=== PATIENT | female | born 1995 | race Hispanic/Latino ===

== ENCOUNTER 2016-12-31 13:03 | Emergency (ER) | payer SELFPAY ==
[2016-12-31 13:38] VITALS: BP 148/88
[2016-12-31 14:47] LABS: Alanine Aminotransferase 10 units/L (7-56); Albumin 4.6 g/dL (3.9-5); Albumin/Globulin Ratio 1.8 %; Alkaline Phosphatase 84 units/L (35-129); Anion Gap 18 mmol/L; BUN/Creatinine Ratio 8.88; Bilirubin,Total 0.2 mg/dL (0.1-1.2); Blood Urea Nitrogen 8 mg/dL (7-17); Calcium 9.3 mg/dL (8.4-10.2); Carbon Dioxide 26 mmol/L (22-30); Chloride 100.8 mmol/L (98-107); Glucose 98 mg/dL (65-100); Lipase 42 units/L (13-60); Potassium 4.3 mmol/L (3.6-5.0); Sodium 140 mmol/L (137-145); Total Protein 7.2 g/dL (6.3-8.2)
[2016-12-31 15:07] LABS: Basophils % (Auto) 0.5 % (0.0-1.8); Eosinophils % (Auto) 2.9 % (0.0-4.3); Hemoglobin 14.6 gm/dl (10.1-14.3); Mean Corpuscular HGB Conc 33 % (30-34); Mean Corpuscular Hemoglobin 29 pg (28-32); Mean Corpuscular Volume 88 fl (79-97); Platelet Count 265 K/mm3 (140-440); Red Blood Count 5.02 M/mm3 (3.65-5.03); Red Cell Distribution Width 13.3 % (13.2-15.2); White Blood Count 8.1 K/mm3 (4.5-11.0)
[2016-12-31 15:12] LABS: Bilirubin,Urine NEG (Negative); Blood,Urine NEG (Negative); Ketones,Urine NEG (Negative); Leukocyte Esterase,Urine TR (Negative); Mucus,Urine FEW /HPF; Nitrite,Urine NEG (Negative); Protein,Urine <15 mg/dL mg/dL (Negative); Urobilinogen,Urine < 2.0 mg/dL (<2.0)
--- NOTE | 2017-01-01 14:29 | ED Elopement Review ---
ED Pt Elopement review - Results review Lab results: Laboratory Tests 12/31/16 12/31/16 12/31/16 13:50 13:50 13:50 WBC 8.1 RBC 5.02 Hgb 14.6 H Hct 44.0 H MCV 88 MCH 29 MCHC 33 RDW 13.3 Plt Count 265 Lymph % (Auto) 30.1 [place] % (Auto) 9.5 H Eos % (Auto) 2.9 Baso % (Auto) 0.5 Lymph # 2.4 [place] # 0.8 Eos # 0.2 Baso # 0.0 Seg Neutrophils % 57.0 Seg Neutrophils # 4.6 Sodium 140 Potassium 4.3 Chloride 100.8 Carbon Dioxide 26 Anion Gap 18 BUN 8 Creatinine 0.9 Estimated GFR > 60 BUN/Creatinine Ratio 8.88 Glucose 98 Calcium 9.3 Total Bilirubin 0.2 AST 15 ALT 10 Alkaline Phosphatase 84 Total Protein 7.2 Albumin 4.6 Albumin/Globulin Ratio 1.8 Lipase 42 HCG, Qual Negative Urine Color Urine Turbidity Urine pH Ur Specific [place] Urine Protein Urine Glucose (UA) Urine Ketones Urine Blood Urine Nitrite Urine Bilirubin Urine Urobilinogen Ur Leukocyte Esterase Urine WBC (Auto) Urine RBC (Auto) U Epithel Cells (Auto) Urine Mucus 12/31/16 14:25 WBC RBC Hgb Hct MCV MCH MCHC RDW Plt Count Lymph % (Auto) [place] % (Auto) Eos % (Auto) Baso % (Auto) Lymph # [place] # Eos # Baso # Seg Neutrophils % Seg Neutrophils # Sodium Potassium Chloride Carbon Dioxide Anion Gap BUN Creatinine Estimated GFR BUN/Creatinine Ratio Glucose Calcium Total Bilirubin AST ALT Alkaline Phosphatase Total Protein Albumin Albumin/Globulin Ratio Lipase HCG, Qual Urine Color Yellow Urine Turbidity Clear Urine pH 6.0 Ur Specific [place] 1.024 Urine Protein <15 mg/dl Urine Glucose (UA) Neg Urine Ketones Neg Urine Blood Neg Urine Nitrite Neg Urine Bilirubin Neg Urine Urobilinogen < 2.0 Ur Leukocyte Esterase Tr Urine WBC (Auto) 1.0 Urine RBC (Auto) 5.0 U Epithel Cells (Auto) 9.0 Urine Mucus Few - Call Back decision Pt Call Back Decision: Pt to F/U with PMD
== END 2017-01-01 04:58 | disposition left against medical advice (07) ==
LOC: ED 13:03
DX: R51 Headache (principal); R10.30 Lower abdominal pain, unspecified; Z53.21 Procedure and treatment not carried out due to patient leaving prior to being seen by health care provider
CPT/HCPCS: 36415; 80053; 81001; 83690; 84703; 85025

== ENCOUNTER 2017-03-05 15:02 | Emergency (ER) | payer SELFPAY ==
[2017-03-05 15:09] VITALS: BP 120/77
--- NOTE | 2017-03-05 16:44 | Emergency Department Report ---
HPI - General Chief Complaint: Urogenital-Female Time Seen by Provider: 03/05/17 16:35 - HPI HPI: This is a 21-year-old female who presents to the emergency department with complaint of some swelling and mild discomfort to the right side of the upper labia as well as some pain just above the vagina. This been going on for the past few days. She denies any fever, nausea, vomiting. She is not taken anything for symptoms prior to presentation. She has a past nuchal history of asthma, GERD, anxiety with panic attacks. She is sexually active and does not always use protection. She has a past history of gonorrhea. She denies any vaginal bleeding, vaginal discharge, dysuria. She does not have a primary care physician or DIAL MARKER. There are no known aggravating or alleviating factors other than touching the areas makes it more painful. ED Past Medical Hx - Past Medical History Previous Medical History?: Yes Hx GERD: Yes Hx Seizures: Yes Hx Psychiatric Treatment: Yes (PANIC ATTACKS) Hx Asthma: Yes Additional medical history: hx panic attacks, reflux - Surgical History Past Surgical History?: No - Social History Smoking Status: Never Smoker Substance Use Type: Non Opiate Pain, Prescribed - Medications Home Medications: Home Medications Medication Instructions Recorded Confirmed Last Taken Type levETIRAcetam [Keppra TAB] 1,000 mg PO BID #30 tablet 06/20/15 12/31/16 09:00 Rx Sulfamethoxazole/Trimethoprim 1 each PO ONCE #14 tablet 03/05/17 Unknown Rx [Bactrim DS TAB] ED Review of Systems ROS: Stated complaint: POSS STD Other details as noted in HPI Comment: All other systems reviewed and negative Constitutional: denies: chills, fever Eyes: denies: eye pain, eye discharge, vision change ENT: denies: ear pain, throat pain Respiratory: denies: cough, shortness of breath, wheezing Cardiovascular: denies: chest pain, palpitations Gastrointestinal: denies: abdominal pain, nausea, diarrhea Genitourinary: denies: urgency, dysuria, discharge Musculoskeletal: denies: back pain, joint swelling, arthralgia Skin: lesions Neurological: denies: headache, weakness, paresthesias Physical Exam - Physical Exam Vital Signs: Vital Signs 03/05/17 15:06 Temperature 98.1 F Pulse Rate 85 Respiratory 18 Rate Blood Pressure 120/77 O2 Sat by Pulse 99 Oximetry Physical Exam: GENERAL: The patient is well-developed well-nourished. HEENT: Normocephalic. Atraumatic. Extraocular motions are intact. Patient has moist mucous membranes. NECK: Supple. Trachea is midline. CHEST/LUNGS: Clear to auscultation. There is no respiratory distress noted. HEART/CARDIOVASCULAR: Regular. There is no tachycardia. There is no gallop rub or murmur. ABDOMEN: Abdomen is soft, nontender. Patient has normal bowel sounds. There is no abdominal distention. SKIN: Skin is warm and dry. : There is a area of swelling to the superior right labia, almost at the mons , that is about 2 cm x 0.5 cm. It is tender and either soft or slightly fluctuant but there is no warmth, erythema. The patient also has some tenderness palpation to the mons just left of center. There is no palpable or visible hernias. There are no other lesions seen on the labia or vagina. NEURO: The patient is awake, alert, and oriented. The patient is cooperative. The patient has no focal neurologic deficits. The patient has normal speech. MUSCULOSKELETAL: There is no tenderness or deformity. There is no limitation range of motion. There is no evidence of acute injury. ED Course Vital Signs 03/05/17 15:06 Temperature 98.1 F Pulse Rate 85 Respiratory 18 Rate Blood Pressure 120/77 O2 Sat by Pulse 99 Oximetry ED Medical Decision Making - Medical Decision Making 21-year-old female presents the emergency department with complaint of some swelling to a small area in the upper right labia as well as some discomfort just above the vagina and what she describes as a "bruising sensation." There was a 2 x 1 cm swollen area to the upper right labia but it was not obviously an abscess and did not appear necessarily ready for any type of I&D. I also took an ultrasound and held it to both the area and the upper labia and the area that is painful above the vagina and there was no double fluid collection seen at that time. When I went back to reevaluate the patient's he says that there was the beginning of some purulent discharge from the small area on the labia. Urinalysis did not show any urinary tract infection and the patient isn' t . Vital signs stable throughout her ED course including being afebrile. Patient started on Bactrim and will use warm compresses. She will return to the ER for any worsening of her symptoms or any acute distress. She was given both primary care and DIAL MARKER referrals. - Differential Diagnosis abscess, boil, dermatitis Critical Care Time: No Critical care attestation.: If time is entered above; I have spent that time in minutes in the direct care of this critically ill patient, excluding procedure time. ED Disposition Clinical Impression: Abscess of labia Groin pain Qualifiers: Laterality: unspecified laterality Qualified Code(s): R10.30 - Lower abdominal pain, unspecified Disposition: TO HOME OR SELFCARE Is pt being admited?: No Condition: Stable Instructions: Abscess (ED) Additional Instructions: Use a warm compress against the labial swelling a few times a day to see if it will form a head and open up. Return to the emergency department with any worsening of your symptoms or any acute distress. Take the antibiotics as prescribed. I'm giving a referral for primary care and DIAL MARKER. Prescriptions: Sulfamethoxazole/Trimethoprim [Bactrim DS TAB] 1 each PO ONCE #14 tablet Referrals: PRIMARY MD DEANNA [Primary Care Provider] - 3-5 Days SHANE DESIR MD [Staff Physician] - 3-5 Days [facility] [Outside] - 3-5 Days [facility] [Provider Group] - 3-5 Days [facility] [Provider Group] - 3-5 Days Time of Disposition: 18:08
[2017-03-05 17:58] LABS: Bacteria,Urine 3+ /HPF (Negative); Bilirubin,Urine NEG (Negative); Blood,Urine NEG (Negative); Ketones,Urine NEG (Negative); Leukocyte Esterase,Urine NEG (Negative); Mucus,Urine FEW /HPF; Nitrite,Urine NEG (Negative); Protein,Urine <15 mg/dL mg/dL (Negative); Urobilinogen,Urine < 2.0 mg/dL (<2.0)
[2017-03-05] MEDS ORDERED: BACTRIM DS PO ONE (18:03)
== END 2017-03-05 18:19 | disposition home or self-care (01) ==
LOC: ED 15:02
DX: N76.4 Abscess of vulva (principal); K21.9 Gastro-esophageal reflux disease without esophagitis; J45.909 Unspecified asthma, uncomplicated
CPT/HCPCS: 81001; 81025; 99283

== ENCOUNTER 2017-03-08 21:37 | Emergency (ER) | payer SELFPAY ==
[2017-03-08 23:55] LABS: Basophils % (Auto) 0.3 % (0.0-1.8); Eosinophils % (Auto) 2.1 % (0.0-4.3); Hematocrit 39.4 % (30.3-42.9); Hemoglobin 13.7 gm/dl (10.1-14.3); Mean Corpuscular HGB Conc 35 % (30-34); Mean Corpuscular Hemoglobin 30 pg (28-32); Mean Corpuscular Volume 87 fl (79-97); Platelet Count 236 K/mm3 (140-440); Red Blood Count 4.55 M/mm3 (3.65-5.03); Red Cell Distribution Width 12.8 % (13.2-15.2); White Blood Count 12.9 K/mm3 (4.5-11.0)
[2017-03-09 00:02] LABS: Anion Gap 16 mmol/L; BUN/Creatinine Ratio 13.63; Blood Urea Nitrogen 15 mg/dL (7-17); Calcium 9.5 mg/dL (8.4-10.2); Carbon Dioxide 25 mmol/L (22-30); Chloride 102.9 mmol/L (98-107); Glucose 85 mg/dL (65-100); Potassium 4.2 mmol/L (3.6-5.0); Sodium 140 mmol/L (137-145)
[2017-03-09] MEDS ORDERED: MOTRIN PO ONE (02:23)
--- NOTE | 2017-03-09 02:39 | Emergency Department Report ---
ED Female HPI - General Chief complaint: Urogenital-Female Stated complaint: VAG PAIN/ W BRUSING Time Seen by Provider: 03/09/17 02:14 Source: patient Mode of arrival: Ambulatory Limitations: No Limitations - History of Present Illness Initial comments: 21-year-old female past medical history anxiety, panic attacks presents with complaint of right labial abscess. Patient states that for the last 3-4 days she has noticed right vaginal pain and swelling. Patient presented to the ED several days ago was prescribed antibiotics and discharged. Patient now presents with right labial pain and swelling MD Complaint: other (labial pain right) Onset/Timin -: days(s) Location: labia (right) Severity: mild Severity scale (0 -10): 6 Quality: aching Consistency: constant Are you Now?: No - Related Data Previous Rx's Medication Instructions Recorded Last Taken Type levETIRAcetam [Keppra TAB] 1,000 mg PO BID #30 tablet 06/20/15 12/31/16 09:00 Rx Sulfamethoxazole/Trimethoprim 1 each PO ONCE #14 tablet 03/05/17 Unknown Rx [Bactrim DS TAB] Acetaminophen/Codeine [Tylenol 1 tab PO Q6H PRN #12 tab 03/09/17 Unknown Rx /Codeine # 3 tab] Cephalexin [Keflex] 500 mg PO Q12HR #14 cap 03/09/17 Unknown Rx Fluconazole [Diflucan TAB] 150 mg PO ONCE #1 tablet 03/09/17 Unknown Rx Ibuprofen [Motrin] 600 mg PO Q8H PRN #30 tablet 03/09/17 Unknown Rx Ondansetron [Zofran Odt] 4 mg PO Q8HR PRN #12 tab.rapdis 03/09/17 Unknown Rx Allergies Allergy/AdvReac Type Severity Reaction Status Date / Time No Known Allergies Allergy Verified 12/31/16 13:29 ED Review of Systems ROS: Stated complaint: VAG PAIN/ W BRUSING Other details as noted in HPI Constitutional: denies: chills, fever Eyes: denies: eye pain, eye discharge, vision change ENT: denies: ear pain, throat pain Respiratory: denies: cough, shortness of breath, wheezing Cardiovascular: denies: chest pain, palpitations Endocrine: no symptoms reported Gastrointestinal: denies: abdominal pain, nausea, diarrhea Genitourinary: other (right labial pain and swelling). denies: urgency, dysuria , discharge Musculoskeletal: denies: back pain, joint swelling, arthralgia Skin: denies: rash, lesions Neurological: denies: headache, weakness, paresthesias Psychiatric: denies: anxiety, depression Hematological/Lymphatic: denies: easy bleeding, easy bruising ED Past Medical Hx - Past Medical History Previous Medical History?: Yes Hx GERD: Yes Hx Seizures: Yes Hx Psychiatric Treatment: Yes (PANIC ATTACKS) Hx Asthma: Yes Additional medical history: hx panic attacks, reflux - Social History Smoking Status: Never Smoker Substance Use Type: None - Medications Home Medications: Home Medications Medication Instructions Recorded Confirmed Last Taken Type levETIRAcetam [Keppra TAB] 1,000 mg PO BID #30 tablet 06/20/15 12/31/16 09:00 Rx Sulfamethoxazole/Trimethoprim 1 each PO ONCE #14 tablet 03/05/17 Unknown Rx [Bactrim DS TAB] Acetaminophen/Codeine [Tylenol 1 tab PO Q6H PRN #12 tab 03/09/17 Unknown Rx /Codeine # 3 tab] Cephalexin [Keflex] 500 mg PO Q12HR #14 cap 03/09/17 Unknown Rx Fluconazole [Diflucan TAB] 150 mg PO ONCE #1 tablet 03/09/17 Unknown Rx Ibuprofen [Motrin] 600 mg PO Q8H PRN #30 tablet 03/09/17 Unknown Rx Ondansetron [Zofran Odt] 4 mg PO Q8HR PRN #12 tab.rapdis 03/09/17 Unknown Rx ED Physical Exam - General Limitations: No Limitations General appearance: alert, in no apparent distress - Head Head exam: Present: atraumatic, normocephalic - Eye Eye exam: Present: normal appearance, PERRL, EOMI - ENT ENT exam: Present: mucous membranes moist - Neck Neck exam: Present: normal inspection - Respiratory Respiratory exam: Present: normal lung sounds bilaterally. Absent: respiratory distress - Cardiovascular Cardiovascular Exam: Present: regular rate, normal rhythm. Absent: systolic murmur, diastolic murmur, rubs, gallop - GI/Abdominal GI/Abdominal exam: Present: soft, normal bowel sounds - External exam: Present: swelling, other (right labial abscess) Speculum exam: Present: normal speculum exam Bi-manual exam: Present: normal bi-manual exam - Expanded Exam Expanded Female exam: Present: vulvar tenderness (right sided) image: 1 - labial abscess here - Extremities Exam Extremities exam: Present: normal inspection - Back Exam Back exam: Present: normal inspection - Neurological Exam Neurological exam: Present: alert, oriented X3 - Psychiatric Psychiatric exam: Present: normal affect, normal mood - Skin Skin exam: Present: warm, dry, intact, normal color. Absent: rash ED Course Vital Signs 03/08/17 22:30 Temperature 98.7 F Pulse Rate 88 Respiratory 18 Rate Blood Pressure 114/72 O2 Sat by Pulse 97 Oximetry - I & D Right Vagina Type of Procedure: Simple Site: right labia vagina Blade Size: 11 I & D Procedure: betadine prep, gauze wick placed (2 strips of iodoform gauze placed in to wound sites incision sites approxim) Progress: Right labia infiltrated with lidocaine 1%. Good local anesthesia achieved. 2 small vertical incisions made on top and bottom of abscess. Moderate amount of drainage, wound culture sent. Minimal bleeding, procedure tolerated well. I was unable to insert a Wurd catheter or Ko ring but did place iodoform gauze. Patient given sanitary napkin afterward. ED Medical Decision Making - Lab Data Result diagrams: 03/08/17 23:22 03/08/17 23:22 - Medical Decision Making A/P: Right labial abscess 1-abscess incised and drained, wound culture sent, significant reduction of pain and swelling 2-wound packed with iodoform gauze. Patient did not tolerate Edwards catheter or Sergo ring 3-Motrin when necessary, Tylenol No. 3 when necessary 4-follow up in the ED 48 hours for wound check 5- I advised patient to return to the ED for fever chills nausea and vomiting or reaccumulation of abscess 6-HOTEL ASSOCIATE follow-up Critical care attestation.: If time is entered above; I have spent that time in minutes in the direct care of this critically ill patient, excluding procedure time. ED Disposition Clinical Impression: Abscess of vagina Disposition: DC- TO HOME OR SELFCARE Is pt being admited?: No Does the pt Need Aspirin: No Condition: Stable Instructions: Abscess (ED), Abscess Incision and Drainage (ED) Additional Instructions: 48 hour wound check in the ED Prescriptions: Acetaminophen/Codeine [Tylenol /Codeine # 3 tab] 1 tab PO Q6H PRN #12 tab PRN Reason: Pain Cephalexin [Keflex] 500 mg PO Q12HR #14 cap Fluconazole [Diflucan TAB] 150 mg PO ONCE #1 tablet Ibuprofen [Motrin] 600 mg PO Q8H PRN #30 tablet PRN Reason: Pain Ondansetron [Zofran Odt] 4 mg PO Q8HR PRN #12 tab.rapdis PRN Reason: Nausea Referrals: JOHNNY CLARK MD [Staff Physician] - 3-5 Days [facility] [Provider Group] - 3-5 Days Forms: Accompanied Note, Work/School Release Form(ED) Time of Disposition: 03:27
[2017-03-09] MEDS ORDERED: ZOFRAN ODT PO ONE (02:59)
[2017-03-09] MEDS ORDERED: NORCO 5/325 PO ONE (02:59)
[2017-03-09 03:39] VITALS: BP 119/77
== END 2017-03-09 03:40 | disposition home or self-care (01) ==
LOC: ED 21:37
DX: N76.4 Abscess of vulva (principal); K21.9 Gastro-esophageal reflux disease without esophagitis; R56.9 Unspecified convulsions; J45.909 Unspecified asthma, uncomplicated; F41.0 Panic disorder [episodic paroxysmal anxiety]
CPT/HCPCS: 36415; 80048; 85025; 87116; Q0162

== ENCOUNTER 2017-03-10 15:40 | Emergency (ER) | payer SELFPAY ==
[2017-03-10 15:53] VITALS: BP 114/69
--- NOTE | 2017-03-10 16:10 | Emergency Department Report ---
Suture/Staple Removal - [facility] Chief Complaint: Laceration/Recheck/Suture Stated Complaint: FOLLOW UP Time Seen by Provider: 03/10/17 15:51 When Sutures or Gurvinder Placed: 2 days ago Wound Location: R labia ED Review of Systems ROS: Stated complaint: FOLLOW UP Other details as noted in HPI Constitutional: denies: chills, fever Gastrointestinal: denies: abdominal pain, nausea, vomiting Genitourinary: other (decrease in swelling ). denies: discharge Skin: other (pt states the packing fell out yesterday ) ED Past Medical Hx - Past Medical History Previous Medical History?: Yes Hx GERD: Yes Hx Seizures: Yes Hx Psychiatric Treatment: Yes (PANIC ATTACKS) Hx Asthma: Yes Additional medical history: hx panic attacks, reflux - Surgical History Past Surgical History?: No - Social History Smoking Status: Never Smoker Substance Use Type: None - Medications Home Medications: Home Medications Medication Instructions Recorded Confirmed Last Taken Type levETIRAcetam [Keppra TAB] 1,000 mg PO BID #30 tablet 06/20/15 12/31/16 09:00 Rx Sulfamethoxazole/Trimethoprim 1 each PO ONCE #14 tablet 03/05/17 Unknown Rx [Bactrim DS TAB] Acetaminophen/Codeine [Tylenol 1 tab PO Q6H PRN #12 tab 03/09/17 Unknown Rx /Codeine # 3 tab] Cephalexin [Keflex] 500 mg PO Q12HR #14 cap 03/09/17 Unknown Rx Fluconazole [Diflucan TAB] 150 mg PO ONCE #1 tablet 03/09/17 Unknown Rx Ibuprofen [Motrin] 600 mg PO Q8H PRN #30 tablet 03/09/17 Unknown Rx Ondansetron [Zofran Odt] 4 mg PO Q8HR PRN #12 tab.rapdis 03/09/17 Unknown Rx Suture Removal Exam - Exam General: Vital signs noted. No distress. Alert and acting appropriately. R labia with I and D site. small amount of drainage Wound: Yes Tenderness, Yes Drainage (small amount ), Yes Pus, No Pathologic Erythema Other Systems: All other systems reviewed and are unremarkable. ED Course Vital Signs 03/10/17 15:50 Temperature 98.3 F Pulse Rate 77 Respiratory 16 Rate Blood Pressure 114/69 O2 Sat by Pulse 100 Oximetry - Reevaluation(s) Reevaluation #1: 03/10/17 16:09 PT states pain improved. PT aware culture pending. pt aware she will need to follow up with map drafter and she will need to continue taking her antibiotics. - Pulse Oximetry Interpretation Digit-Finger Initial Pulse Oximetry Readin Actions Taken: none ED Recheck MDM - Differential Diagnosis Wound Recheck, Cellultitis Recheck, Cutananeous Abscess reche Critical Care Time: No Critical care attestation.: If time is entered above; I have spent that time in minutes in the direct care of this critically ill patient, excluding procedure time. ED Disposition Clinical Impression: Abscess of labia Disposition: - TO HOME OR SELFCARE Is pt being admited?: No Does the pt Need Aspirin: No Condition: Stable Instructions: Abscess (ED) Referrals: FABIOLA MENG MD [Staff Physician] - 3-5 Days [facility] [Outside] - 3-5 Days [facility] [Outside] - 3-5 Days Time of Disposition: 16:11
== END 2017-03-10 16:36 | disposition home or self-care (01) ==
LOC: ED 15:40
DX: Z48.00 Encounter for change or removal of nonsurgical wound dressing (principal); K21.9 Gastro-esophageal reflux disease without esophagitis; J45.909 Unspecified asthma, uncomplicated

== ENCOUNTER 2017-03-31 08:27 | Emergency (ER) | payer SELFPAY ==
[2017-03-31 08:39] VITALS: BP 120/81
[2017-03-31 09:18] LABS: Basophils % (Auto) 0.7 % (0.0-1.8); Eosinophils % (Auto) 2.6 % (0.0-4.3); Hematocrit 41.5 % (30.3-42.9); Mean Corpuscular HGB Conc 34 % (30-34); Mean Corpuscular Hemoglobin 29 pg (28-32); Mean Corpuscular Volume 87 fl (79-97); Platelet Count 258 K/mm3 (140-440); Red Blood Count 4.78 M/mm3 (3.65-5.03); Red Cell Distribution Width 12.8 % (13.2-15.2); White Blood Count 7.5 K/mm3 (4.5-11.0)
[2017-03-31 09:32] LABS: Anion Gap 19 mmol/L; BUN/Creatinine Ratio 11.11; Blood Urea Nitrogen 10 mg/dL (7-17); Calcium 9.2 mg/dL (8.4-10.2); Carbon Dioxide 22 mmol/L (22-30); Chloride 104.4 mmol/L (98-107); Glucose 100 mg/dL (65-100); Potassium 4.6 mmol/L (3.6-5.0); Sodium 141 mmol/L (137-145)
== END 2017-03-31 09:12 | disposition left against medical advice (07) ==
LOC: ED 08:27
DX: F41.0 Panic disorder [episodic paroxysmal anxiety] (principal); Z53.21 Procedure and treatment not carried out due to patient leaving prior to being seen by health care provider
CPT/HCPCS: 36415; 80048; 80177; 85025

== ENCOUNTER 2017-07-16 12:59 | Emergency (ER) | payer SELFPAY ==
[2017-07-16 13:48] VITALS: BP 108/69
[2017-07-16 15:31] LABS: Bilirubin,Urine NEG (Negative); Blood,Urine NEG (Negative); Ketones,Urine NEG (Negative); Leukocyte Esterase,Urine NEG (Negative); Nitrite,Urine NEG (Negative); Protein,Urine <15 mg/dL mg/dL (Negative); Urobilinogen,Urine < 2.0 mg/dL (<2.0); WBC,Urine < 1.0 /HPF (0.0-6.0)
== END 2017-07-16 18:37 | disposition left against medical advice (07) ==
LOC: ED 12:59
DX: H92.02 Otalgia, left ear (principal); Z53.21 Procedure and treatment not carried out due to patient leaving prior to being seen by health care provider
CPT/HCPCS: 81001

== ENCOUNTER 2017-12-13 20:24 | Emergency (ER) | payer SELFPAY ==
[2017-12-13 20:41] VITALS: BP 116/71
[2017-12-14] MEDS ORDERED: ULTRAM PO ONE (01:07)
--- NOTE | 2017-12-14 01:12 | Emergency Department Report ---
ED ENT HPI - General Chief complaint: Dental/Oral Stated complaint: TOOTHACHE,SORE THROAT Time Seen by Provider: 12/14/17 00:42 Source: patient Mode of arrival: Ambulatory Limitations: No Limitations - History of Present Illness Initial comments: This is a 22 y.o. female that presents with toothache on right lower side for 1 week. Patient reports seeing a whole in the tooth and feeling like the wisdom tooth is trying to come in. Patient reports pain as 10/10 on pain scale. She couldn't go into work today because the pain was constant throbbing. She has tried taking OTC pain medication without improvement of symptoms. Denies difficulty swallowing, fever, sore throat, or facial swelling. MD complaint: tooth pain -: week(s) (1) Location: tooth # (31, 32) Severity: severe Severity scale (0 -10): 10 Quality: constant, other (throbbing) Consistency: constant Improves with: none Worsens with: eating Context- Dental: history of dental caries Associated Symptoms: toothache - Related Data Previous Rx's Medication Instructions Recorded Last Taken Type levETIRAcetam [Keppra TAB] 1,000 mg PO BID #30 tablet 06/20/15 12/31/16 09:00 Rx Sulfamethoxazole/Trimethoprim 1 each PO ONCE #14 tablet 03/05/17 Unknown Rx [Bactrim DS TAB] Acetaminophen/Codeine [Tylenol 1 tab PO Q6H PRN #12 tab 03/09/17 Unknown Rx /Codeine # 3 tab] Cephalexin [Keflex] 500 mg PO Q12HR #14 cap 03/09/17 Unknown Rx Fluconazole [Diflucan TAB] 150 mg PO ONCE #1 tablet 03/09/17 Unknown Rx Ibuprofen [Motrin] 600 mg PO Q8H PRN #30 tablet 03/09/17 Unknown Rx Ondansetron [Zofran Odt] 4 mg PO Q8HR PRN #12 tab.rapdis 03/09/17 Unknown Rx Clindamycin [Clindamycin CAP] 300 mg PO Q8H 10 Days #30 cap 12/14/17 Unknown Rx traMADol [Ultram 50 MG tab] 50 mg PO Q6HR PRN #20 tablet 12/14/17 Unknown Rx Allergies Allergy/AdvReac Type Severity Reaction Status Date / Time No Known Allergies Allergy Verified 12/31/16 13:29 ED Dental HPI - General Chief complaint: Dental/Oral Stated complaint: TOOTHACHE,SORE THROAT Time Seen by Provider: 12/14/17 00:42 Source: patient Mode of arrival: Ambulatory Limitations: No Limitations - Related Data Previous Rx's Medication Instructions Recorded Last Taken Type levETIRAcetam [Keppra TAB] 1,000 mg PO BID #30 tablet 06/20/15 12/31/16 09:00 Rx Sulfamethoxazole/Trimethoprim 1 each PO ONCE #14 tablet 03/05/17 Unknown Rx [Bactrim DS TAB] Acetaminophen/Codeine [Tylenol 1 tab PO Q6H PRN #12 tab 03/09/17 Unknown Rx /Codeine # 3 tab] Cephalexin [Keflex] 500 mg PO Q12HR #14 cap 03/09/17 Unknown Rx Fluconazole [Diflucan TAB] 150 mg PO ONCE #1 tablet 03/09/17 Unknown Rx Ibuprofen [Motrin] 600 mg PO Q8H PRN #30 tablet 03/09/17 Unknown Rx Ondansetron [Zofran Odt] 4 mg PO Q8HR PRN #12 tab.rapdis 03/09/17 Unknown Rx Clindamycin [Clindamycin CAP] 300 mg PO Q8H 10 Days #30 cap 12/14/17 Unknown Rx traMADol [Ultram 50 MG tab] 50 mg PO Q6HR PRN #20 tablet 12/14/17 Unknown Rx Allergies Allergy/AdvReac Type Severity Reaction Status Date / Time No Known Allergies Allergy Verified 12/31/16 13:29 ED Review of Systems ROS: Stated complaint: TOOTHACHE,SORE THROAT Other details as noted in HPI Constitutional: denies: chills, fever ENT: dental pain (right lower side). denies: ear pain, throat pain, hearing loss, epistaxis, congestion Respiratory: denies: cough, shortness of breath, wheezing Cardiovascular: denies: chest pain, palpitations Gastrointestinal: denies: abdominal pain, nausea, diarrhea Neurological: denies: headache, weakness, numbness, paresthesias Psychiatric: denies: anxiety, depression ED Past Medical Hx - Past Medical History Hx GERD: Yes Hx Seizures: Yes Hx Psychiatric Treatment: Yes (PANIC ATTACKS) Hx Asthma: Yes Additional medical history: hx panic attacks, reflux - Surgical History Additional Surgical History: excisional drainage to vaginal cyst. - Social History Smoking Status: Never Smoker Substance Use Type: None - Medications Home Medications: Home Medications Medication Instructions Recorded Confirmed Last Taken Type levETIRAcetam [Keppra TAB] 1,000 mg PO BID #30 tablet 06/20/15 12/31/16 09:00 Rx Sulfamethoxazole/Trimethoprim 1 each PO ONCE #14 tablet 03/05/17 Unknown Rx [Bactrim DS TAB] Acetaminophen/Codeine [Tylenol 1 tab PO Q6H PRN #12 tab 03/09/17 Unknown Rx /Codeine # 3 tab] Cephalexin [Keflex] 500 mg PO Q12HR #14 cap 03/09/17 Unknown Rx Fluconazole [Diflucan TAB] 150 mg PO ONCE #1 tablet 03/09/17 Unknown Rx Ibuprofen [Motrin] 600 mg PO Q8H PRN #30 tablet 03/09/17 Unknown Rx Ondansetron [Zofran Odt] 4 mg PO Q8HR PRN #12 tab.rapdis 03/09/17 Unknown Rx Clindamycin [Clindamycin CAP] 300 mg PO Q8H 10 Days #30 cap 12/14/17 Unknown Rx traMADol [Ultram 50 MG tab] 50 mg PO Q6HR PRN #20 tablet 12/14/17 Unknown Rx ED Physical Exam - General Limitations: No Limitations General appearance: alert, in no apparent distress - ENT ENT exam: Present: mucous membranes moist, other (#31 dental caries ) - Neck Neck exam: Present: normal inspection, full ROM. Absent: tenderness, meningismus, lymphadenopathy - Respiratory Respiratory exam: Present: normal lung sounds bilaterally. Absent: respiratory distress, wheezes, rales, stridor, accessory muscle use, decreased breath sounds - Cardiovascular Cardiovascular Exam: Present: regular rate, normal rhythm, normal heart sounds. Absent: systolic murmur, diastolic murmur, rubs, gallop - GI/Abdominal GI/Abdominal exam: Present: soft, normal bowel sounds. Absent: distended, tenderness, guarding, rebound, rigid - Neurological Exam Neurological exam: Present: alert, oriented X3, normal gait - Psychiatric Psychiatric exam: Present: normal affect, normal mood - Skin Skin exam: Present: warm, dry, intact, normal color. Absent: rash ED Course Vital Signs 12/13/17 12/13/17 20:37 20:53 Temperature 98.4 F 98.4 F Pulse Rate 81 80 Respiratory 18 18 Rate Blood Pressure 116/71 116/71 O2 Sat by Pulse 97 98 Oximetry ED Medical Decision Making - Medical Decision Making This is a 22-year-old female that presents with toothache on right lower side for 1 week. Patient is stable and was examined by me. Given tramadol 50 mg po once in ER. Susceptible of dental caries. Discussed plan with patient to f/u with dentist. She agreed with ER plan. Discharged home with clindamycin and tramadol. Follow up with dentist and referral to [facility]. Critical care attestation.: If time is entered above; I have spent that time in minutes in the direct care of this critically ill patient, excluding procedure time. ED Disposition Clinical Impression: Dental caries, Toothache Disposition: TO HOME OR SELFCARE Is pt being admited?: No Does the pt Need Aspirin: No Condition: Stable Instructions: Dental Caries (ED), Toothache (ED) Additional Instructions: Complete all days of clindamycin as prescribed for 14 days. Follow up with Dentist at [facility] in 24-72 hours. Prescriptions: Clindamycin [Clindamycin CAP] 300 mg PO Q8H 10 Days #30 cap traMADol [Ultram 50 MG tab] 50 mg PO Q6HR PRN #20 tablet PRN Reason: Pain Referrals: [facility] [Outside] - 3-5 Days [facility] [Outside] - 3-5 Days [facility] [Outside] - 3-5 Days [facility] [Outside] - 3-5 Days Forms: Work/School Release Form(ED) Time of Disposition: 01:17 Print Language: FAROESE
== END 2017-12-14 01:20 | disposition home or self-care (01) ==
LOC: ED 20:24
DX: K02.9 Dental caries, unspecified (principal); K21.9 Gastro-esophageal reflux disease without esophagitis; J45.909 Unspecified asthma, uncomplicated
CPT/HCPCS: 99282

== ENCOUNTER 2018-01-04 16:12 | Emergency (ER) | payer SELFPAY ==
[2018-01-04 16:58] VITALS: BP 105/77
== END 2018-01-04 21:42 | disposition left against medical advice (07) ==
LOC: ED 16:12
DX: M79.1 Myalgia (principal); Z53.21 Procedure and treatment not carried out due to patient leaving prior to being seen by health care provider

== ENCOUNTER 2018-04-12 13:55 | Emergency (ER) | payer SELFPAY ==
[2018-04-12] MEDS ORDERED: DECADRON IM ONE (17:19)
[2018-04-12] MEDS ORDERED: BENADRYL IV ONE (17:19)
[2018-04-12] MEDS ORDERED: PEPCID PO ONE (17:19)
--- NOTE | 2018-04-12 17:32 | Emergency Department Report ---
- General Chief complaint: Skin Rash Stated complaint: ALLERGIC REACTION/PAIN/SEIZURES Time Seen by Provider: 04/12/18 17:14 Source: patient Mode of arrival: Ambulatory Limitations: No Limitations - History of Present Illness Initial comments: 22-year-old female past medical history seizures on Keppra presents with complaint of itchy rash on multiple body parts since last night. Patient states it started near elbows and spread centrally. Denies fevers chills nausea or vomiting. Denies any recent new medicines cosmetics or new foods or any food allergies. Patient states that she took her dog walking in a park 3 days ago and may have walked through bushes with poison oak and poison jamila and also washed her dog after walking in the park. Patient is suspicious she may have been exposed to plants that made her break out with a rash. Patient also states that she noticed an insect bite on her dog which may have been a tick bite. Patient denies seeing any ticks on herself. Patient is fully lucid awake alert and oriented 3 speaking in full sentences and no audible wheezing or stridor. No visible signs of angioedema. Patient denies being sexually promiscuous and states she only has one current sex partner, no history of syphilis. MD complaint: rash -: Last night Location: generalized Quality: other (itching) Consistency: constant Improves with: none Worsens with: none Associated symptoms: itching Treatments Prior to Arrival: none - Related Data Previous Rx's Medication Instructions Recorded Last Taken Type RX: levETIRAcetam [Keppra TAB] 1,000 mg PO BID #30 tablet 06/20/15 12/31/16 09: 00 Rx RX: Sulfamethoxazole/Trimethoprim 1 each PO ONCE #14 tablet 03/05/17 Unknown Rx [Bactrim DS TAB] Cephalexin [Keflex] 500 mg PO Q12HR #14 cap 03/09/17 Unknown Rx Fluconazole [Diflucan TAB] 150 mg PO ONCE #1 tablet 03/09/17 Unknown Rx Ibuprofen [Motrin] 600 mg PO Q8H PRN #30 tablet 03/09/17 Unknown Rx Ondansetron [Zofran Odt] 4 mg PO Q8HR PRN #12 tab.rapdis 03/09/17 Unknown Rx RX: Acetaminophen/Codeine [Tylenol 1 tab PO Q6H PRN #12 tab 03/09/17 Unknown Rx /Codeine # 3 tab] RX: Clindamycin [Clindamycin CAP] 300 mg PO Q8H 10 Days #30 cap 12/14/17 Unknown Rx RX: traMADol [Ultram 50 MG tab] 50 mg PO Q6HR PRN #20 tablet 12/14/17 Unknown Rx Famotidine [Pepcid] 20 mg PO BID PRN #30 tablet 04/12/18 Unknown Rx Prednisone [predniSONE 10 mg 10 mg PO .TAPER #1 tab.ds.pk 04/12/18 Unknown Rx (6-Day Pack, 21 Tabs)] RX: Doxycycline [Vibramycin CAP] 100 mg PO Q12HR #20 capsule 04/12/18 Unknown Rx RX: Hydroxyzine HCl 25 mg PO BID PRN #20 tablet 04/12/18 Unknown Rx RX: Triamcinolone 0.1% [Kenalog 1 applic TP TID PRN #1 tube 04/12/18 Unknown Rx 0.1% OINT] Allergies Allergy/AdvReac Type Severity Reaction Status Date / Time No Known Allergies Allergy Verified 12/31/16 13:29 Abscess Boil HPI - HPI Chief Complaint: Skin Rash Stated Complaint: ALLERGIC REACTION/PAIN/SEIZURES Time Seen by Provider: 04/12/18 17:14 Home Medications: Previous Rx's Medication Instructions Recorded Last Taken Type RX: levETIRAcetam [Keppra TAB] 1,000 mg PO BID #30 tablet 06/20/15 12/31/16 09: 00 Rx RX: Sulfamethoxazole/Trimethoprim 1 each PO ONCE #14 tablet 03/05/17 Unknown Rx [Bactrim DS TAB] Cephalexin [Keflex] 500 mg PO Q12HR #14 cap 03/09/17 Unknown Rx Fluconazole [Diflucan TAB] 150 mg PO ONCE #1 tablet 03/09/17 Unknown Rx Ibuprofen [Motrin] 600 mg PO Q8H PRN #30 tablet 03/09/17 Unknown Rx Ondansetron [Zofran Odt] 4 mg PO Q8HR PRN #12 tab.rapdis 03/09/17 Unknown Rx RX: Acetaminophen/Codeine [Tylenol 1 tab PO Q6H PRN #12 tab 03/09/17 Unknown Rx /Codeine # 3 tab] RX: Clindamycin [Clindamycin CAP] 300 mg PO Q8H 10 Days #30 cap 12/14/17 Unknown Rx RX: traMADol [Ultram 50 MG tab] 50 mg PO Q6HR PRN #20 tablet 12/14/17 Unknown Rx Famotidine [Pepcid] 20 mg PO BID PRN #30 tablet 04/12/18 Unknown Rx Prednisone [predniSONE 10 mg 10 mg PO .TAPER #1 tab.ds.pk 04/12/18 Unknown Rx (6-Day Pack, 21 Tabs)] RX: Doxycycline [Vibramycin CAP] 100 mg PO Q12HR #20 capsule 04/12/18 Unknown Rx RX: Hydroxyzine HCl 25 mg PO BID PRN #20 tablet 04/12/18 Unknown Rx RX: Triamcinolone 0.1% [Kenalog 1 applic TP TID PRN #1 tube 04/12/18 Unknown Rx 0.1% OINT] Allergies/Adverse Reactions: Allergies Allergy/AdvReac Type Severity Reaction Status Date / Time No Known Allergies Allergy Verified 12/31/16 13:29 ED Review of Systems ROS: Stated complaint: ALLERGIC REACTION/PAIN/SEIZURES Other details as noted in HPI Constitutional: denies: chills, fever Eyes: denies: eye pain, eye discharge, vision change ENT: denies: ear pain, throat pain Respiratory: denies: cough, shortness of breath, wheezing Cardiovascular: denies: chest pain, palpitations Endocrine: no symptoms reported Gastrointestinal: denies: abdominal pain, nausea, diarrhea Genitourinary: denies: urgency, dysuria, discharge Musculoskeletal: denies: back pain, joint swelling, arthralgia Skin: pruritus. denies: rash, lesions Neurological: denies: headache, weakness, paresthesias Psychiatric: denies: anxiety, depression Hematological/Lymphatic: denies: easy bleeding, easy bruising ED Past Medical Hx - Past Medical History Hx GERD: Yes Hx Seizures: Yes Hx Psychiatric Treatment: Yes (PANIC ATTACKS) Hx Asthma: Yes Additional medical history: hx panic attacks, reflux, HEMORRHOIDS - Surgical History Additional Surgical History: excisional drainage to vaginal cyst. - Social History Smoking Status: Never Smoker Substance Use Type: None - Medications Home Medications: Home Medications Medication Instructions Recorded Confirmed Last Taken Type RX: levETIRAcetam [Keppra TAB] 1,000 mg PO BID #30 tablet 06/20/15 12/31/1609/06 09:00 Rx RX: Sulfamethoxazole/Trimethoprim 1 each PO ONCE #14 tablet 03/05/17 Unknown Rx [Bactrim DS TAB] Cephalexin [Keflex] 500 mg PO Q12HR #14 cap 03/09/17 Unknown Rx Fluconazole [Diflucan TAB] 150 mg PO ONCE #1 tablet 03/09/17 Unknown Rx Ibuprofen [Motrin] 600 mg PO Q8H PRN #30 tablet 03/09/17 Unknown Rx Ondansetron [Zofran Odt] 4 mg PO Q8HR PRN #12 tab.rapdis 03/09/17 Unknown Rx RX: Acetaminophen/Codeine [Tylenol 1 tab PO Q6H PRN #12 tab 03/09/17 Unknown Rx /Codeine # 3 tab] RX: Clindamycin [Clindamycin CAP] 300 mg PO Q8H 10 Days #30 cap 12/14/17 Unknown Rx RX: traMADol [Ultram 50 MG tab] 50 mg PO Q6HR PRN #20 tablet 12/14/17 Unknown Rx Famotidine [Pepcid] 20 mg PO BID PRN #30 tablet 04/12/18 Unknown Rx Prednisone [predniSONE 10 mg 10 mg PO .TAPER #1 tab.ds.pk 04/12/18 Unknown Rx (6-Day Pack, 21 Tabs)] RX: Doxycycline [Vibramycin CAP] 100 mg PO Q12HR #20 capsule 04/12/18 Unknown Rx RX: Hydroxyzine HCl 25 mg PO BID PRN #20 tablet 04/12/18 Unknown Rx RX: Triamcinolone 0.1% [Kenalog 1 applic TP TID PRN #1 tube 04/12/18 Unknown Rx 0.1% OINT] ED Physical Exam - General Limitations: No Limitations General appearance: alert, in no apparent distress - Head Head exam: Present: atraumatic, normocephalic - Eye Eye exam: Present: normal appearance - ENT ENT exam: Present: mucous membranes moist - Neck Neck exam: Present: normal inspection - Respiratory Respiratory exam: Present: normal lung sounds bilaterally. Absent: respiratory distress - Cardiovascular Cardiovascular Exam: Present: regular rate, normal rhythm. Absent: systolic murmur, diastolic murmur, rubs, gallop - GI/Abdominal GI/Abdominal exam: Present: soft, normal bowel sounds - Extremities Exam Extremities exam: Present: normal inspection - Back Exam Back exam: Present: normal inspection - Neurological Exam Neurological exam: Present: alert, oriented X3 - Psychiatric Psychiatric exam: Present: normal affect, normal mood - Skin Skin exam: Present: warm, dry, intact, normal color. Absent: rash - Expanded Skin Exam Expanded Type of lesion: Present: rash (generalized rash involving palms and soles are nonblanching small reddish on arms legs back chest genitals and face) Distribution of rash: involves palms/soles ED Course Vital Signs 04/12/18 04/12/18 14:15 19:56 Temperature 98.3 F 97.7 F Pulse Rate 90 90 Respiratory 18 16 Rate Blood Pressure 116/64 Blood Pressure 124/68 [Left] O2 Sat by Pulse 98 99 Oximetry ED Medical Decision Making - Lab Data Result diagrams: 04/12/18 17:34 04/12/18 17:34 - Medical Decision Making A/P: contact dermatitis vs poison jamila/poison oak exposure versus possible tick exposure, generalized rash 1-based on patient's possible exposure to poison jamila and poison oak will treat with antihistamines initial dose pack allergy medicine, Claritin, Benadryl, Pepcid when necessary 2-topical oatmeal baths, topical steroids, calamine. He shouldn't is symptomatically feeling better before discharge 3-RPR sent. As patient states she is somewhat concerned about tick exposure based on her activity in the park and a possible tick bite on her dog I offered patient a treatment for early possible tick exposure/Lyme disease. I also advised the patient that she could follow-up as an outpatient for this as well. Patient elected to have a course of doxycycline instead to mitigate any possible acquisition of 1 disease. I advised patient to avoid direct sunlight while using doxycycline that she must follow-up with a primary care doctor. Patient stated that she would do so. I advised patient to follow up results with medical records 4- vital signs stable for discharge and no clinical signs of angioedema 5- there are no ticks on the patient upon examination. There does not appear to be any target lesion. There are no lesions consistent with erythema multiforme and there is no mucosal involvement upon examination of the mouth. Advised patient to return to the ED if she experiences high fevers worsens rash any desquamation of her skin severe bodyaches nausea or vomiting. Patient stated she understood my instructions. Critical care attestation.: If time is entered above; I have spent that time in minutes in the direct care of this critically ill patient, excluding procedure time. ED Disposition Clinical Impression: Acute maculopapular rash, Hives, Poison jamila dermatitis Disposition: TO HOME OR SELFCARE Is pt being admited?: No Does the pt Need Aspirin: No Condition: Stable Instructions: Urticaria (ED), Poison Jamila (ED) Additional Instructions: Patient advised to follow-up RPR Prescriptions: RX: Doxycycline [Vibramycin CAP] 100 mg PO Q12HR #20 capsule Famotidine [Pepcid] 20 mg PO BID PRN #30 tablet PRN Reason: Itching RX: Hydroxyzine HCl 25 mg PO BID PRN #20 tablet PRN Reason: Itching Prednisone [predniSONE 10 mg (6-Day Pack, 21 Tabs)] 10 mg PO .TAPER #1 tab.ds.pk RX: Triamcinolone 0.1% [Kenalog 0.1% OINT] 1 applic TP TID PRN #1 tube PRN Reason: Itching Referrals: [facility] [Outside] - 3-5 Days [facility] [Provider Group] - 3-5 Days Forms: Work/School Release Form(ED) Time of Disposition: 19:09
[2018-04-12] MEDS ORDERED: BENADRYL PO ONE ×2 (17:35→17:44)
[2018-04-12 17:50] LABS: Basophils # (Auto) 0.1 K/mm3 (0.0-0.1); Basophils % (Auto) 0.5 % (0.0-1.8); Eosinophils # (Auto) 0.3 K/mm3 (0.0-0.4); Eosinophils % (Auto) 2.2 % (0.0-4.3); Hemoglobin 14.3 gm/dl (10.1-14.3); Lymphocytes # (Auto) 0.5 K/mm3 (1.2-5.4); Lymphocytes % (Auto) 3.7 % (13.4-35.0); Mean Corpuscular HGB Conc 35 % (30-34); Mean Corpuscular Hemoglobin 31 pg (28-32); Mean Corpuscular Volume 88 fl (79-97); Monocytes # (Auto) 0.7 K/mm3 (0.0-0.8); Monocytes % (Auto) 5.2 % (0.0-7.3); Platelet Count 261 K/mm3 (140-440); Red Blood Count 4.66 M/mm3 (3.65-5.03); Red Cell Distribution Width 13.4 % (13.2-15.2)
[2018-04-12 18:00] LABS: Alanine Aminotransferase 12 units/L (7-56); Albumin 4.2 g/dL (3.9-5); BUN/Creatinine Ratio 9; Bilirubin,Direct < 0.2 mg/dL (0-0.2); Blood Urea Nitrogen 8 mg/dL (7-17); Calcium 8.8 mg/dL (8.4-10.2); Hemolysis Index 11
[2018-04-12 19:58] VITALS: BP 124/68
== END 2018-04-12 19:59 | disposition home or self-care (01) ==
LOC: ED 13:55
DX: L23.7 Allergic contact dermatitis due to plants, except food (principal); R21 Rash and other nonspecific skin eruption; K21.9 Gastro-esophageal reflux disease without esophagitis; J45.909 Unspecified asthma, uncomplicated; F41.0 Panic disorder [episodic paroxysmal anxiety]
CPT/HCPCS: 36415; 80048; 80074; 85025; 86592; 96372; 99283; J1100

== ENCOUNTER 2018-11-29 12:51 | Emergency (ER) | payer OTHER ==
--- NOTE | 2018-11-29 12:58 | Emergency Department Report ---
Blank Doc - Documentation Documentation: This is a 23-year-old female that presents with n/v x1 day. Denies any abdomi nal pain. This initial assessment/diagnostic orders/clinical plan/treatment(s) is/are subject to change based on patient's health status, clinical progression and re- assessment by fellow clinical providers in the ED. Further treatment and workup at subsequent clinical providers discretion. Patient/guardians urged not to elope from the ED as their condition may be serious if not clinically assessed and managed. Initial orders include: 1- Patient sent to [facility] for further evaluation and treatment 2- labs 3- UA
[2018-11-29 13:24] LABS: Basophils # (Auto) 0.1 K/mm3 (0.0-0.1); Basophils % (Auto) 0.6 % (0.0-1.8); Eosinophils # (Auto) 0.1 K/mm3 (0.0-0.4); Eosinophils % (Auto) 1.4 % (0.0-4.3); Hematocrit 42.4 % (30.3-42.9); Hemoglobin 14.7 gm/dl (10.1-14.3); Lymphocytes # (Auto) 2.5 K/mm3 (1.2-5.4); Mean Corpuscular HGB Conc 35 % (30-34); Mean Corpuscular Volume 87 fl (79-97); Monocytes # (Auto) 0.6 K/mm3 (0.0-0.8); Monocytes % (Auto) 7.3 % (0.0-7.3); Platelet Count 261 K/mm3 (140-440); Red Blood Count 4.88 M/mm3 (3.65-5.03); Red Cell Distribution Width 12.5 % (13.2-15.2)
[2018-11-29 13:46] LABS: Alanine Aminotransferase 8 units/L (7-56); Albumin 4.5 g/dL (3.9-5); BUN/Creatinine Ratio 13; Blood Urea Nitrogen 10 mg/dL (7-17); Calcium 8.8 mg/dL (8.4-10.2); Hemolysis Index 10
[2018-11-29 13:51] LABS: Bilirubin,Direct < 0.2 mg/dL (0-0.2)
[2018-11-29 14:51] LABS: Bacteria,Urine 1+ /HPF (Negative); Bilirubin,Urine NEG (Negative); Blood,Urine NEG (Negative); Color,Urine Yellow (Yellow); Mucus,Urine FEW /HPF; Protein,Urine <15 mg/dL mg/dL (Negative); Urobilinogen,Urine < 2.0 mg/dL (<2.0)
[2018-11-29 14:59] LABS: HCG Qualitative,Urine Negative (Negative)
[2018-11-29] MEDS ORDERED: ZOFRAN ODT PO ONE (15:25)
[2018-11-29 15:32] VITALS: BP 110/67
--- NOTE | 2018-11-29 15:45 | Emergency Department Report ---
Vomiting/Diarrhea - HPI Chief Complaint: Nausea/Vomiting/Diarrhea Stated Complaint: VOMIT/DEHYRATED/BAD HEADACHES Time Seen by Provider: 11/29/18 12:57 Duration: Today Severity: mild Nausea/Vomiting Severity: Mild (vomited 5 times) Diarrhea Severity: None Pain Severity: None Symptoms: Yes Recent Unusual Foods (ate at a new [employer] restaurant last night), No Fever, No Recent use of Antibiotics, No Family w/ Similar Symptoms, No Contacts w/ Similar Symptoms, No Rash, No Hematuria, No Recent URI Symptoms ED Review of Systems ROS: Stated complaint: VOMIT/DEHYRATED/BAD HEADACHES Other details as noted in HPI Comment: All other systems reviewed and negative ED Past Medical Hx - Past Medical History Hx GERD: Yes Hx Seizures: Yes Hx Psychiatric Treatment: Yes (PANIC ATTACKS) Hx Asthma: Yes Additional medical history: hx panic attacks, reflux, HEMORRHOIDS - Surgical History Additional Surgical History: excisional drainage to vaginal cyst. - Social History Smoking Status: Never Smoker Substance Use Type: None - Medications Home Medications: Home Medications Medication Instructions Recorded Confirmed Last Taken Type levETIRAcetam [Keppra TAB] 1,000 mg PO BID #30 tablet 06/20/15 12/31/16 12/31/16 09:00 Rx Sulfamethoxazole/Trimethoprim 1 each PO ONCE #14 tablet 03/05/17 Unknown Rx [Bactrim DS TAB] Acetaminophen/Codeine [Tylenol 1 tab PO Q6H PRN #12 tab 03/09/17 Unknown Rx /Codeine # 3 tab] Fluconazole [Diflucan TAB] 150 mg PO ONCE #1 tablet 03/09/17 Unknown Rx Ibuprofen [Motrin] 600 mg PO Q8H PRN #30 tablet 03/09/17 Unknown Rx Ondansetron [Zofran Odt] 4 mg PO Q8HR PRN #12 tab.rapdis 03/09/17 Unknown Rx cephALEXin [Keflex] 500 mg PO Q12HR #14 cap 03/09/17 Unknown Rx Clindamycin [Clindamycin CAP] 300 mg PO Q8H 10 Days #30 cap 12/14/17 Unknown Rx traMADol [Ultram 50 MG tab] 50 mg PO Q6HR PRN #20 tablet 12/14/17 Unknown Rx Doxycycline [Vibramycin CAP] 100 mg PO Q12HR #20 capsule 04/12/18 Unknown Rx Famotidine [Pepcid] 20 mg PO BID PRN #30 tablet 04/12/18 Unknown Rx Prednisone [predniSONE 10 mg 10 mg PO .TAPER #1 tab.ds.pk 04/12/18 Unknown Rx (6-Day Pack, 21 Tabs)] Triamcinolone 0.1% [Kenalog 0.1% 1 applic TP TID PRN #1 tube 04/12/18 Unknown Rx OINT] hydrOXYzine HCl [Hydroxyzine HCl] 25 mg PO BID PRN #20 tablet 04/12/18 Unknown Rx Famotidine [Pepcid] 40 mg PO QHS #10 tablet 11/29/18 Unknown Rx Ondansetron [Zofran Odt] 4 mg PO Q8HR PRN #10 tab.rapdis 11/29/18 Unknown Rx Vomiting Diarrhea Exam - Exam General: Vital signs noted. No distress. Alert and acting appropriately. HEENT: Yes Moist Mucous Membranes, No Pharyngeal Erythema, No Pharyngeal Exudates, No Rhinorrhea, No Conjuctival Injection, No Frontal Tenderness, No Maxillary Tenderness Neck: No Adenopathy, No Rigidity Lungs: Yes Clear Lung Sounds, Yes Good Air Exchange, No Wheezes, No Stridor, No Cough, No Nasal Flaring, No Retractions, No Use of Accessory Muscles Heart exam: Regular: Yes, Murmur: No, Tachycardia: No Abdomen: Tenderness: No, Peritoneal Signs: No, Distention: No, Hyperactive Bowel sounds: No Skin exam: Rash: No, Edema: No, Normal turgor: Yes Neurologic: Alert and oriented, no deficits. Musculoskeletal: Unremarkable. ED Course Vital Signs 11/29/18 11/29/18 11/29/18 12:57 15:26 15:31 Temperature 97.9 F Pulse Rate 93 H 75 Respiratory 16 14 14 Rate Blood Pressure 118/69 Blood Pressure 110/67 [Right] O2 Sat by Pulse 100 99 Oximetry ED Medical Decision Making - Lab Data Result diagrams: 11/29/18 13:10 11/29/18 13:10 Lab Results 11/29/18 11/29/18 11/29/18 Range/Units 13:10 13:10 14:35 WBC 8.8 (4.5-11.0) K/mm3 RBC 4.88 (3.65-5.03) M/mm3 Hgb 14.7 H (10.1-14.3) gm/dl Hct 42.4 (30.3-42.9) % MCV 87 (79-97) fl MCH 30 (28-32) pg MCHC 35 H (30-34) % RDW 12.5 L (13.2-15.2) % Plt Count 261 (140-440) K/mm3 Lymph % (Auto) 28.0 (13.4-35.0) % [place] % (Auto) 7.3 (0.0-7.3) % Eos % (Auto) 1.4 (0.0-4.3) % Baso % (Auto) 0.6 (0.0-1.8) % Lymph # 2.5 (1.2-5.4) K/mm3 [place] # 0.6 (0.0-0.8) K/mm3 Eos # 0.1 (0.0-0.4) K/mm3 Baso # 0.1 (0.0-0.1) K/mm3 Seg Neutrophils % 62.7 (40.0-70.0) % Seg Neutrophils # 5.5 (1.8-7.7) K/mm3 Sodium 138 (137-145) mmol/L Potassium 4.6 (3.6-5.0) mmol/L Chloride 107.3 H (98-107) mmol/L Carbon Dioxide 24 (22-30) mmol/L Anion Gap 11 mmol/L BUN 10 (7-17) mg/dL Creatinine 0.8 (0.7-1.2) mg/dL Estimated GFR > 60 ml/min BUN/Creatinine Ratio 13 % Glucose 98 (65-100) mg/dL Calcium 8.8 (8.4-10.2) mg/dL Total Bilirubin 0.40 (0.1-1.2) mg/dL Direct Bilirubin < 0.2 (0-0.2) mg/dL Indirect Bilirubin 0.2 mg/dL AST 12 (5-40) units/L ALT 8 (7-56) units/L Alkaline Phosphatase 66 (35-129) units/L Total Protein 6.9 (6.3-8.2) g/dL Albumin 4.5 (3.9-5) g/dL Albumin/Globulin Ratio 1.9 % Lipase 37 (13-60) units/L Urine Color Yellow (Yellow) Urine Turbidity Cloudy (Clear) Urine pH 7.0 (5.0-7.0) Ur Specific [place] 1.021 (1.003-1.030) Urine Protein <15 mg/dl (Negative) mg/dL Urine Glucose (UA) Neg (Negative) mg/dL Urine Ketones Neg (Negative) mg/dL Urine Blood Neg (Negative) Urine Nitrite Neg (Negative) Urine Bilirubin Neg (Negative) Urine Urobilinogen < 2.0 (<2.0) mg/dL Ur Leukocyte Esterase Neg (Negative) Urine WBC (Auto) 4.0 (0.0-6.0) /HPF Urine RBC (Auto) 5.0 (0.0-6.0) /HPF U Epithel Cells (Auto) 3.0 (0-13.0) /HPF Urine Bacteria (Auto) 1+ (Negative) /HPF Urine Mucus Few /HPF Urine HCG, Qual Negative (Negative) - Medical Decision Making Patient given meds for symptomatic relief will be discharged home.Pt stable to orally hydrate Critical care attestation.: If time is entered above; I have spent that time in minutes in the direct care of this critically ill patient, excluding procedure time. ED Disposition Clinical Impression: Gastritis Qualifiers: Gastritis type: unspecified gastritis Chronicity: acute Gastritis bleeding: without bleeding Qualified Code(s): K29.00 - Acute gastritis without bleeding Disposition: DC-01 TO HOME OR SELFCARE Is pt being admited?: No Does the pt Need Aspirin: No Condition: Stable Instructions: Food Poisoning (ED) Referrals: FLORA COTA MD [Primary Care Provider] - 3-5 Days Time of Disposition: 15:39
== END 2018-11-29 15:48 | disposition home or self-care (01) ==
LOC: ED 12:51
DX: K29.70 Gastritis, unspecified, without bleeding (principal); K21.9 Gastro-esophageal reflux disease without esophagitis; F41.0 Panic disorder [episodic paroxysmal anxiety]; J45.909 Unspecified asthma, uncomplicated
CPT/HCPCS: 36415; 80048; 80076; 81001; 81025; 83690; 85025; Q0162

== ENCOUNTER 2021-03-02 14:57 | Emergency (ER) | payer OTHER ==
--- NOTE | 2021-03-02 15:44 | Emergency Department Report ---
HPI - General Time Seen by Provider: 03/02/21 15:39 - HPI HPI: 25-year-old female with history of seizure disorder on Keppra and lamotrigine presents after a witnessed seizure which occurred just prior to arrival. She states that she was at work when her coworker saw her seizing. It was an unknown duration. She says she feels weak which is very typical of her seizures. She says she has been taking her prescribed medications and has not skipped any doses. She denies any sleep deprivation or alcohol ingestion recently. Other than feeling generally weak, she denies any physical symptoms or complaints at this time. Prior to my interview, the patient indicated that she wanted to leave AGAINST MEDICAL ADVICE. I went to interview and examine the patient to ensure that she understands the situation and her choices as well as the potential risks of leaving AGAINST MEDICAL ADVICE. ED Past Medical Hx - Past Medical History Hx GERD: Yes Hx Seizures: Yes Hx Psychiatric Treatment: Yes (PANIC ATTACKS) Hx Asthma: Yes Additional medical history: hx panic attacks, reflux, HEMORRHOIDS - Surgical History Additional Surgical History: excisional drainage to vaginal cyst. - Social History Smoking Status: Never Smoker Substance Use Type: None - Medications Home Medications: Home Medications Medication Instructions Recorded Confirmed Last Taken Type levETIRAcetam [Keppra TAB] 1,000 mg PO BID #30 tablet 06/20/15 12/31/16 12/31/16 09:00 Rx Sulfamethoxazole/Trimethoprim 1 each PO ONCE #14 tablet 03/05/17 Unknown Rx [Bactrim DS TAB] Acetaminophen/Codeine [Tylenol 1 tab PO Q6H PRN #12 tab 03/09/17 Unknown Rx /Codeine # 3 tab] Fluconazole (Nf) [Diflucan TAB] 150 mg PO ONCE #1 tablet 03/09/17 Unknown Rx Ibuprofen [Motrin] 600 mg PO Q8H PRN #30 tablet 03/09/17 Unknown Rx Ondansetron [Zofran Odt] 4 mg PO Q8HR PRN #12 tab.rapdis 03/09/17 Unknown Rx cephALEXin [Keflex] 500 mg PO Q12HR #14 cap 03/09/17 Unknown Rx Clindamycin [Clindamycin CAP] 300 mg PO Q8H 10 Days #30 cap 12/14/17 Unknown Rx traMADoL [Ultram 50 MG tab] 50 mg PO Q6HR PRN #20 tablet 12/14/17 Unknown Rx DOXYCYCLINE Hyclate [Vibramycin 100 mg PO Q12HR #20 capsule 04/12/18 Unknown Rx CAP] Famotidine [Pepcid] 20 mg PO BID PRN #30 tablet 04/12/18 Unknown Rx Prednisone [predniSONE 10 mg 10 mg PO .TAPER #1 tab.ds.pk 04/12/18 Unknown Rx (6-Day Pack, 21 Tabs)] Triamcinolone 0.1% [Kenalog 0.1% 1 applic TP TID PRN #1 tube 04/12/18 Unknown Rx OINT] hydrOXYzine HCL [Hydroxyzine HCl] 25 mg PO BID PRN #20 tablet 04/12/18 Unknown Rx Famotidine [Pepcid] 40 mg PO QHS #10 tablet 11/29/18 Unknown Rx Ondansetron [Zofran Odt] 4 mg PO Q8HR PRN #10 tab.rapdis 11/29/18 Unknown Rx ED Review of Systems ROS: Stated complaint: SEIZURE Other details as noted in HPI Constitutional: weakness. denies: chills, fever Eyes: denies: eye pain, vision change ENT: denies: throat pain, congestion Respiratory: denies: cough, shortness of breath Cardiovascular: denies: chest pain, palpitations Gastrointestinal: denies: abdominal pain, nausea, vomiting Genitourinary: denies: dysuria, frequency Musculoskeletal: denies: back pain, myalgia Skin: denies: rash Neurological: denies: headache, weakness, numbness Physical Exam - Physical Exam Physical Exam: GENERAL: Well developed and well nourished. No acute distress. Slightly somnolent but responsive. HEENT: Normocephalic. No obvious signs of trauma. Moist mucous membranes. EYES: Extraocular movements are intact. NECK: Supple. Trachea is midline. LUNGS: Nonlabored breathing. Equal chest rise bilaterally. Clear to auscultation bilaterally. HEART/CARDIOVASCULAR: Regular rate and rhythm. No murmurs or rubs. ABDOMEN: Abdomen is soft and nondistended. There is no significant tenderness, guarding or rebound. SKIN: Skin is warm and dry NEURO: Patient is awake, alert, and oriented. project assistant II-XII grossly intact. No focal deficits. Normal motor and sensory exam throughout. Normal speech. MUSCULOSKELETAL: No obvious deformities. No significant tenderness. Normal ROM throughout. ED Medical Decision Making - Medical Decision Making 25-year-old female with history of seizure disorder presents after a witnessed seizure at work. Patient has been taking Keppra 2000 mg twice daily as well as 150 mg of lamotrigine daily. She says she feels generalized weakness which is typical of what she feels after seizure. Physical examination does not reveal any significant abnormalities. The patient is alert and oriented x4. She indicates that she wants to leave AGAINST MEDICAL ADVICE before any work-up was performed. I discussed with her the risks of leaving AGAINST MEDICAL ADVICE including permanent/temporary disability and/or . The patient expressed understanding of the risks and wants to proceed with AMA discharge. I recommended that she follow-up within the next few days with the primary care doctor. She will be discharged to the care of her . Critical care attestation.: If time is entered above; I have spent that time in minutes in the direct care of this critically ill patient, excluding procedure time. ED Disposition Clinical Impression: Seizure Disposition: DC-07 LEFT AGAINST MED ADVICE Is pt being admited?: No Condition: Stable
== END 2021-03-02 16:09 | disposition left against medical advice (07) ==
LOC: ED 14:57
DX: G40.909 Epilepsy, unspecified, not intractable, without status epilepticus (principal); K21.9 Gastro-esophageal reflux disease without esophagitis; J45.909 Unspecified asthma, uncomplicated; Z98.890 Other specified postprocedural states; Z79.899 Other long term (current) drug therapy